=== PATIENT | female | born 1970 | race Caucasian/White ===

== ENCOUNTER 2016-12-23 19:06 | Emergency (ER) | payer OTHER ==
--- NOTE | 2016-12-31 19:06 | ER ---
ADMIT: 12/23/2016 RM/LOC: ER [facility] MR#: [id number] [id number] ESME [address]RAUSE [address] [place] [address] Emergency Room Report SEX: F AGE: 46 : 1970 DATE: 12/23/2016 HISTORY OF PRESENT ILLNESS: The patient is a 46-year-old female with a past medical history of fibromyalgia, hypertension, rheumatoid arthritis, and kidney stone, who came to the ER with chief complaint of left flank pain for 1 day. The patient states pain is very similar to the kidney stone pain she had before in the previous days in the same place. Pain is colicky and is moderate to severe in severity and sometimes sharp and is on the left flank and there is no radiation of the pain. The patient denies any nausea, vomiting, or fever. The patient states she just took Motrin, which did not work with the pain. PHYSICAL EXAMINATION: VITAL SIGNS: In the ER, the patient was afebrile. GENERAL: In moderate distress. HEAD and NECK: Noncontributory. CHEST: Clear to auscultation. HEART: Normal heart sounds. ABDOMEN: Soft. The patient had mild left flank pain, left flank tenderness. There is no rebound or guarding. The rest of the physical exam is noncontributory. Pain was controlled. LABORATORY DATA: Urine was negative for rbc or wbc. White blood cell in CBC was 12.6 with hemoglobin of 15 and platelets of 332. Lipase level was also 97, and AST and ALT levels were noncontributory. Pain was moderately controlled and the patient was re-examined and did not develop any new symptoms. The patient states she prefers to go home instead of having any extra imaging or interventions and prefers to just have a rest and if there is any new happening, she promised to come back to the ER. The patient's examination was benign and the vitals are also normal. The patient was discharged to home. Boubacra Burnham MD/ isidro JOB #: [id number] CC: Tariq Lemon MD, Attending Physician Jayden Pearce MD, Family Physician
== END 2016-12-23 21:17 | disposition home or self-care (01) ==
LOC: ER 19:06
DX: R10.9 Unspecified abdominal pain (principal); I10 Essential (primary) hypertension; Z87.442 Personal history of urinary calculi; Z88.0 Allergy status to penicillin; Z88.1 Allergy status to other antibiotic agents; Z88.2 Allergy status to sulfonamides; Z88.8 Allergy status to other drugs, medicaments and biological substances